=== PATIENT | male | born 1950 | race Caucasian/White ===

== ENCOUNTER 2019-09-07 23:19 | Emergency (ER) | payer MEDICARE ==
[2019-09-07] MEDS ORDERED: AZITHROMYCIN 500 MG TAB PO STA (23:41)
[2019-09-07] MEDS ORDERED: IPRATROPIUM-ALBUTEROL 3 ML NEB INHALATION STA (23:41)
[2019-09-07] MEDS ORDERED: Acetaminophen-Codeine 300-30mg TAB PO STA (23:42)
[2019-09-07] MEDS ORDERED: BENZONATATE 100 MG CAP PO STA (23:42)
[2019-09-07] MEDS ORDERED: ACETAMINOPHEN TAB 325 MG TAB PO STA (23:45)
[2019-09-07] MEDS ORDERED: IBUPROFEN 600 MG TAB PO STA (23:45)
--- NOTE | 2019-09-07 23:56 | XR ---
EXAMINATION TYPE: XR chest 2V DATE OF EXAM: 09/07/2019 COMPARISON: NONE HISTORY: Cough TECHNIQUE: 2 views FINDINGS: Heart and mediastinum are normal. Lungs are clear. Diaphragm is normal. Bony thorax appears normal. IMPRESSION: Normal chest. Normal heart.
--- NOTE | 2019-09-07 23:58 | ED ---
URI HPI - General Chief Complaint: Upper Respiratory Infection Stated Complaint: congestion/chest pain Time Seen by Provider: 09/07/19 23:41 Source: patient, RN notes reviewed, old records reviewed Mode of arrival: ambulatory Limitations: no limitations - History of Present Illness Initial Comments: This is a 60-year-old male here for evaluation of cough congestion fevers and not feeling well decreased appetite symptoms for a few weeks now. No significant medical history no significant travel history patient states his does not feel well symptoms may chair at home with Motrin and Tylenol hydration arrests are not working. Denying chest pain again no travel history no nausea vomiting or diarrhea currently MD Complaint: fever, cough, nasal congestion -: week(s) Severity: moderate Severity scale (1-10): 4 Consistency: intermittent Improves With: nothing Worsens With: nothing Context: sick contacts Associated Symptoms: fever, chills, myalgias, nasal congestion, cough Treatments Prior to Arrival: none - Related Data Previous Rx's Medication Instructions Recorded Albuterol Sulfate [Proair Hfa] 1 - 2 puff INHALATION Q4H PRN #1 09/08/19 inhaler Azithromycin [Zithromax Z-pack] 0 mg PO DIRECTED #1 pack 09/08/19 Codeine Phosphate/Guaifenesin 5 ml PO Q4H PRN 3 Days #90 ml 09/08/19 [Guaifen-Codeine 100-10 mg/5 ml] Allergies Allergy/AdvReac Type Severity Reaction Status Date / Time No Known Allergies Allergy Verified 09/07/19 23:27 Review of Systems ROS Statement: Those systems with pertinent positive or pertinent negative responses have been documented in the HPI. ROS Other: All systems not noted in ROS Statement are negative. Past Medical History Past Medical History: Hyperlipidemia History of Any Multi-Drug Resistant Organisms: None Reported Past Surgical History: No Surgical Hx Reported Past Psychological History: No Psychological Hx Reported Smoking Status: Never smoker Past Alcohol Use History: None Reported Past Drug Use History: None Reported General Exam Limitations: no limitations General appearance: alert, in no apparent distress Head exam: Present: atraumatic, normocephalic, normal inspection Eye exam: Present: normal appearance, PERRL, EOMI. Absent: scleral icterus, conjunctival injection, periorbital swelling ENT exam: Present: normal exam, mucous membranes moist Neck exam: Present: normal inspection. Absent: tenderness, meningismus, lym phadenopathy Respiratory exam: Present: normal lung sounds bilaterally. Absent: respiratory distress, wheezes, rales, rhonchi, stridor Cardiovascular Exam: Present: regular rate, normal rhythm, normal heart sounds. Absent: systolic murmur, diastolic murmur, rubs, gallop, clicks GI/Abdominal exam: Present: soft, normal bowel sounds. Absent: distended, tenderness, guarding, rebound, rigid Extremities exam: Present: normal inspection, full ROM, normal capillary refill. Absent: tenderness, pedal edema, joint swelling, calf tenderness Back exam: Present: normal inspection Neurological exam: Present: alert, oriented X3, CN II-XII intact Psychiatric exam: Present: normal affect, normal mood Skin exam: Present: warm, dry, intact, normal color. Absent: rash Course Vital Signs 09/07/19 09/08/19 09/08/19 23:24 00:07 00:27 Temperature 98.9 F Pulse Rate 84 84 Respiratory 20 22 Rate Blood Pressure 135/77 O2 Sat by Pulse 96 Oximetry 09/08/19 09/08/19 00:34 00:40 Temperature 98 F Pulse Rate 88 77 Respiratory 18 Rate Blood Pressure 144/84 O2 Sat by Pulse 98 Oximetry - Reevaluation(s) Reevaluation #1: Medical records reviewed patient's in no acute distress feeling better with. Treatments here in the ER Medical Decision Making - Medical Decision Making 68 male here for evaluation patient is a for evaluation regards to cough congestion and fever 3 weeks. Patient has normal x-ray we'll treat for upper respiratory infection versus bronchitis the patient can be discharged home - Radiology Data Radiology results: report reviewed (Chest x-rays negative for acute disease), image reviewed Disposition Clinical Impression: Acute upper respiratory infection, Bronchitis Disposition: HOME SELF-CARE Condition: Good Instructions (If sedation given, give patient instructions): Upper Respiratory Infection (ED) Prescriptions: Codeine Phosphate/Guaifenesin [Guaifen-Codeine 100-10 mg/5 ml] 5 ml PO Q4H PRN 3 Days #90 ml PRN Reason: Cough Albuterol Sulfate [Proair Hfa] 1 - 2 puff INHALATION Q4H PRN #1 inhaler PRN Reason: Shortness Of Breath Azithromycin [Zithromax Z-pack] 0 mg PO DIRECTED #1 pack Is patient prescribed a controlled substance at d/c from ED?: No Referrals: Chay Michaels MD [Primary Care Provider] - 1-2 days
[2019-09-08 00:42] VITALS: BP 144/84; PULSE 77; RESP 18; TEMP 98
== END 2019-09-08 00:42 | disposition home or self-care (01) ==
LOC: EC 23:19
DX: J06.9 Acute upper respiratory infection, unspecified (principal); J40 Bronchitis, not specified as acute or chronic
CPT/HCPCS: 71046; 93005; 94640; 99284